=== PATIENT | female | born 1975 | race Caucasian/White ===

== ENCOUNTER 2017-12-19 09:51 | Outpatient (CLI) | payer OTHER | END 2017-12-19 17:00 | disposition home or self-care (01) | LOC: RX STUDY 09:51 | DX: D27.0 Benign neoplasm of right ovary (principal); D39.8 Neoplasm of uncertain behavior of other specified female genital organs ==

== ENCOUNTER 2017-12-19 09:57 | Outpatient (CLI) | payer OTHER | END 2017-12-19 17:00 | disposition home or self-care (01) | LOC: MAMO-SONO 09:57 | DX: N60.11 Diffuse cystic mastopathy of right breast (principal); N60.12 Diffuse cystic mastopathy of left breast; D25.9 Leiomyoma of uterus, unspecified; Z12.31 Encounter for screening mammogram for malignant neoplasm of breast ==

== ENCOUNTER 2023-01-10 06:00 | Day surgery (SDC) | payer OTHER ==
[~2023-01-10] VITALS: Ht 149.9 cm; Wt 59.9 kg
[2023-01-10] MEDS ORDERED: MORGIDOX100 MG PO (11:56)
[2023-01-10] MEDS ORDERED: IBU600 MG PO (11:56)
== END 2023-01-10 14:20 | disposition home or self-care (01) ==
LOC: CIR.AMB 06:00
PROVIDERS: ATTEND Obstetrics & Gynecology
DX: N92.1 Excessive and frequent menstruation with irregular cycle (principal); D25.9 Leiomyoma of uterus, unspecified; N84.0 Polyp of corpus uteri; Z20.822 Contact with and (suspected) exposure to COVID-19